=== PATIENT | male | born 1995 | race Caucasian/White ===

== ENCOUNTER → 2017-01-14 | Outpatient (CLI) | payer OTHER ==
[~2017-01-14] MED LIST: IOPAMIDOL (ISOVUE-300) 100 ML BTL IV ONE
== END ==
LOC: FIMAGING 16:09
PROVIDERS: ATTEND Internal Medicine
DX: K22.0 Achalasia of cardia (principal)
CPT/HCPCS: Q9967

== ENCOUNTER → 2017-05-04 | Outpatient (CLI) | payer OTHER | LOC: FIMAGING 08:17 | PROVIDERS: ATTEND Surgery | DX: K22.0 Achalasia of cardia (principal) ==